=== PATIENT | female | born 1995 | race Caucasian/White ===

== ENCOUNTER → 2016-06-22 | Outpatient (CLI) | payer BC ==
[~2016-06-22] MED LIST: ALBUTEROL17 GM INH; B-121000 MCG/1; BENTYL20 MG DOB; GILENYA0.5 MG PO; IMPLANON68 MG/IMPL SQ; NO MEDICATIONS
--- NOTE | ~2016-06-22 | MR17 ---
[facility] A Service of [facility] & [facility] RADIOLOGY TEXT RESULTS PATIENT: JAQUI SHARMA LOCATION: [facility] : [birth year] UNIT #: [id number] AGE: [address]: AMADA JERNIGAN MD SEX: F ORDER DR: [id number] [address] [address] [id number] O MR#: [id number] Acc #: [id number] NAME: JAQUI SHARMA : 1995 SEX: F STUDY DATE/TIME: 06/22/2016 10:16 UNIT: [facility] ROOM: STUDY DESCRIPTION: MR Brain WWo Contrast Attending Physician: Amada Jernigan M.D. Referring Physician: Amada Jernigan M.D. Ordering Physician: Amada Jernigan M.D. Primary Care Physician: Zoila Paul M.D. MRI CENTER REPORT This report is preliminary unless electronic signature is present. EXAM MRI of the brain with and without contrast dated 06/22/2016. COMPARISON MRI brain with and without contrast dated 04/08/2016. HISTORY Numbness in the left foot since Monday. Follow up MS. TECHNIQUE Multisequence multiplanar imaging of the brain was obtained with and without contrast. 20 mL of MultiHance was administered intravenously. FINDINGS There are multiple hyperintense T2 lesions scattered in the brain. There are interval new lesions, with the largest 1 measuring 0.7 x 0.9 cm in the right frontoparietal junctional cortex and underlying subcortical white matter with enhancement. There are 3 other enhancing lesions noted in the brain; 1 in the left frontal centrum semiovale, second in the left frontoparietal junctional periventricular white matter and the last in the right middle cerebellar peduncle. These lesions are new when compared to the previous study. Previously noted lesions including the 1 in the right side of the splenium of the corpus callosum are again seen. No acute stroke, hydrocephalus, hemorrhage, or midline shift. Thick slices through the sella with the pituitary gland, pineal region and the cervical spine are grossly unremarkable. Imaged orbits and the ocular structures and mastoids are unremarkable. Nasal septum is deviated to the right. There is minimal bilateral mastoid mucosal thickening. IMPRESSION [facility] A Service of [facility] & [facility] RADIOLOGY TEXT RESULTS PATIENT: JAQUI SHARMA LOCATION: [facility] : [birth year] UNIT #: [id number] AGE: [address]: AMADA JERNIGAN MD SEX: F ORDER DR: 1. Abnormal study. 2. Interval worsening with 4 enhancing lesions in the brain which are in keeping with acute multiple sclerosis plaques. They are new when compared to the previous study and they are noted in bifrontal parietal white matter and in the right middle cerebellar peduncle, as described above. 3. Multiple other chronic multiple sclerosis plaques are also seen. 4. No hydrocephalus, hemorrhage, mass effect or midline shift. Dictated by... Cody Box M.D. THIS IS AN ELECTRONICALLY VERIFIED REPORT Cody Box M.D. at 06/23/2016 3:19 PM CPR/kamaljit TD: 06/22/2016 18:51 JOB #: [id number] MRI CENTER REPORT Page 1 of 1
== END | disposition home or self-care (01) ==
LOC: SMRI 09:48
DX: G35 Multiple sclerosis (principal); G93.89 Other specified disorders of brain
CPT/HCPCS: 70553; A9581

== ENCOUNTER → 2016-08-04 | Outpatient (CLI) | payer BC, OTHER | END | disposition home or self-care (01) | LOC: CSSDAY 09:25 | DX: G35 Multiple sclerosis (principal); Z79.899 Other long term (current) drug therapy | CPT/HCPCS: 96365; J2930 ==

== ENCOUNTER → 2016-08-05 | Outpatient (CLI) | payer BC, OTHER | END | disposition home or self-care (01) | LOC: CSSDAY 07:35 | DX: G35 Multiple sclerosis (principal); Z79.899 Other long term (current) drug therapy | CPT/HCPCS: 96365; J2930 ==

== ENCOUNTER → 2016-08-06 | Outpatient (CLI) | payer BC, OTHER | END | disposition home or self-care (01) | LOC: CSSDAY 09:36 | DX: G35 Multiple sclerosis (principal); Z79.899 Other long term (current) drug therapy | CPT/HCPCS: 96365; J2930 ==

== ENCOUNTER → 2016-08-07 | Outpatient (CLI) | payer BC, OTHER | END | disposition home or self-care (01) | LOC: CSSDAY 07:08 | DX: G35 Multiple sclerosis (principal); Z79.899 Other long term (current) drug therapy | CPT/HCPCS: 96365; J2930 ==

== ENCOUNTER → 2016-08-08 | Outpatient (CLI) | payer BC, OTHER | END | disposition home or self-care (01) | LOC: CSSDAY 06:51 | DX: G35 Multiple sclerosis (principal); Z79.899 Other long term (current) drug therapy | CPT/HCPCS: 96365; J2930 ==

== ENCOUNTER → 2016-08-24 | Outpatient (CLI) | payer BC, OTHER ==
--- NOTE | ~2016-08-24 | MR17 ---
[facility] A Service of [facility] & [facility] RADIOLOGY TEXT RESULTS PATIENT: JAQUI SHARMA LOCATION: [facility] : 93 UNIT #: [id number] AGE: [address]: AMADA JERNIGAN MD SEX: F ORDER DR: [id number] [address] [address] [id number] O MR#: [id number] Acc #: [id number] NAME: JAQUI SHARMA : 1995 SEX: F STUDY DATE/TIME: 08/24/2016 9:24 UNIT: [facility] ROOM: STUDY DESCRIPTION: MR Brain WWo Contrast Attending Physician: Amada Jernigan M.D. Referring Physician: Amada Jernigan M.D. Ordering Physician: Amada Jernigan M.D. Primary Care Physician: Zoila Paul M.D. MRI CENTER REPORT This report is preliminary unless electronic signature is present. EXAM MRI of the brain with and without contrast dated 08/24/2016 COMPARISON MRI brain with and without contrast dated 06/22/2016. HISTORY Follow up known multiple sclerosis. Left-sided facial numbness for 2 months. Patient was diagnosed with MS in December 2015. Patient has had change of treatment medications since last MRI. FINDINGS Multisequence, multiplanar imaging of the brain was obtained with and without contrast. No acute stroke, enhancing mass, hydrocephalus or midline shift. Redemonstrated are multiple hyperintense T2 nonenhancing lesions in the periventricular and subcortical white matter. They are about 10-12 in number ranging in size from a millimeter to 8.5 mm. The relatively largest 1 is in the right side of the splenium of the corpus callosum. Previously noted lesion in the right middle cerebellar peduncle close to the right cerebral hemisphere is again seen. No significant interval new lesions are seen given the differences in slice selection. The previously enhancing lesions have improved in the interval. The edema associated with the plaque in the right frontoparietal junctional subcortical white matter has also improved. Paranasal sinuses, orbits with the ocular structures and mastoids are unremarkable. Nasal septum is deviated to the right. Thick slices through the sella with the pituitary gland, pineal region and upper cervical spine are within normal limits. IMPRESSION 1. There is overall significant improvement in the enhancing and STS[facility] A Service of [facility] & [facility] RADIOLOGY TEXT RESULTS PATIENT: JAQUI SHARMA LOCATION: [facility] : [birth year] UNIT #: [id number] AGE: [address]: AMADA JERNIGAN MD SEX: F ORDER DR: edematous characteristics of some of the lesions. The size and number of the lesions itself appear to be predominantly stable involving the other lesions. 2. The currently noted nonenhancing T2 lesions are in keeping with chronic multiple sclerosis plaques. Dictated by... Cody Box M.D. THIS IS AN ELECTRONICALLY VERIFIED REPORT Cody Box M.D. at 08/25/2016 3:38 PM CPR/rishi TD: 08/25/2016 10:54 JOB #: [id number] MRI CENTER REPORT Page 1 of 1
== END | disposition home or self-care (01) ==
LOC: SMRI 08:59
DX: G35 Multiple sclerosis (principal); G93.89 Other specified disorders of brain
CPT/HCPCS: 70553; A9581

== ENCOUNTER → 2016-09-26 | Outpatient (CLI) | payer BC, OTHER ==
[2016-09-26 12:23] LABS: BASOPHIL% 0.9 % (0-2.5); EOSINOPHIL% 0.6 % (0.0-7.0); HEMATOCRIT 41.5 % (35.0-45.0); HEMOGLOBIN 14.1 gm/dL (12.0-16.0); LYMPHOCYTE# 0.3 X10e3 (1.0-3.5); LYMPHOCYTE% 6.9 % (17.0-45.0); MEAN CELL VOLUME 87.5 FL (83-96); MEAN CORPUSCULAR HEMOGLOBIN 29.8 PG (28-34); MEAN PLATELET VOLUME 9.7 FL (6.5-11.5); MONOCYTE# 0.4 X10e3 (0-1.0); MONOCYTE% 9.1 % (3.0-12.0); NEUTROPHIL# 3.7 X10e3 (1.5-7.1); NEUTROPHIL% 82.5 % (40-75); PLATELET COUNT 189 X10e3 (140-420); RED BLOOD COUNT 4.74 X10e (3.90-5.30); RED CELL DISTRIBUTION WIDTH 13.7 % (11.0-15.5); WHITE BLOOD COUNT 4.5 X10e3 (4.0-10.5)
[2016-09-26 12:27] LABS: DIFF IND NO
== END | disposition home or self-care (01) ==
LOC: CLAB 11:46
PROVIDERS: Psychiatry & Neurology Clinical Neurophysiology
DX: G35 Multiple sclerosis (principal)
CPT/HCPCS: 36415; 85025

== ENCOUNTER → 2016-11-07 | Outpatient (CLI) | payer BC, OTHER ==
--- NOTE | ~2016-11-07 | MR31 ---
[facility] A Service of [facility] RADIOLOGY TEXT RESULTS PATIENT: JAQUI SHARMA LOCATION: [facility] : [birth year] UNIT #: [id number] AGE: [address]: AZALIA PORTILLO MD SEX: F ORDER DR: [id number] [address] [address] [id number] O MR#: [id number] Acc #: [id number] NAME: JAQUI SHARMA : 1995 SEX: F STUDY DATE/TIME: 11/07/2016 16:12 UNIT: [facility] ROOM: STUDY DESCRIPTION: MR Cervical WWo Contrast Attending Physician: Azalia Portillo M.D. Referring Physician: Azalia Portillo M.D. Ordering Physician: Britt Ann Primary Care Physician: Zoila Paul M.D. MRI CENTER REPORT This report is preliminary unless electronic signature is present. EXAM Cervical MRI with without contrast HISTORY Multiple sclerosis with left sided heaviness, especially left lower extremity for the past 4 months. TECHNIQUE Multiplanar imaging cervical spine was performed with short and long TR with and without contrast. 20 mL of MultiHance was used. COMPARISON 12/07/2015 FINDINGS The cervical discs are unchanged. Increased T2 signal in the upper cervical cord dorsally at C1 and C2 noted on the previous examination is much less prominent on the current study. Signal in the remainder of the cervical cord is normal. After contrast administration no enhancing lesions are seen. IMPRESSION 1. Cord demyelination at C1 and C2 dorsally and more to the left than to the right is again noted but is much less prominent on the current study and there is no contrast enhancement. 2. No new cord lesions are seen elsewhere. Dictated by... Javier Alvarado M.D. THIS IS AN ELECTRONICALLY VERIFIED REPORT Javier Alvarado M.D. at 11/10/2016 4:01 PM [facility] A Service [facility] RADIOLOGY TEXT RESULTS PATIENT: JAQUI SHARMA LOCATION: [facility] #: [id number] : [birth year] UNIT #: [id number] AGE: [address]: AZALIA PORTILLO MD SEX: F ORDER DR: NICOLASA/quan TD: 11/08/2016 17:53 JOB #: [id number] MRI CENTER REPORT Page 1 of 1
--- NOTE | ~2016-11-07 | MR17 ---
[facility] A Service of [facility] & [facility] RADIOLOGY TEXT RESULTS PATIENT: JAQUI SHARMA LOCATION: [facility] : [birth year] UNIT #: [id number] AGE: [address]: AZALIA PORTILLO MD SEX: F ORDER DR: [id number] [address] [address] [id number] O MR#: [id number] Acc #: [id number] NAME: JAQUI SHARMA : 1995 SEX: F STUDY DATE/TIME: 11/07/2016 15:48 UNIT: [facility] ROOM: STUDY DESCRIPTION: MR Brain WWo Contrast Attending Physician: Azalia Portillo M.D. Referring Physician: Azalia Portillo M.D. Ordering Physician: Britt Ann Primary Care Physician: Zoila Paul M.D. MRI CENTER REPORT This report is preliminary unless electronic signature is present. EXAM Brain MRI with and without contrast HISTORY Multiple sclerosis with persistent left sided heaviness, especially to the left lower extremity over the past 4 months. TECHNIQUE Multiplanar imaging brain was performed with and without contrast. 20 mL of MultiHance was used. FINDINGS Multiple foci of bright FLAIR signal are seen around the ventricles. There is a new plaque seen adjacent to the atrium of the left lateral ventricle measuring approximately 1 x 1.5 cm in diameter. There is a subcortical plaque in the right frontal lobe that was present before but is slightly larger on the current examination. There is a small plaque posteriorly in the right middle cerebellar peduncle. It is slightly less prominent on the current study compared to the previous examination. The left parietal plaque adjacent to the atrium of the lateral ventricle enhances with contrast consistent with active demyelination. None of the other plaques enhance. Extraaxial structures are unremarkable. No mass lesions are identified. IMPRESSION 1. There is 1 new plaque in the left cerebral hemisphere adjacent to the atrium of the lateral ventricle that enhances with contrast when compared to the previous exam. 2. There is a right frontal plaque that is slightly larger but does not enhance. 3. Other plaques noted on previous examination are again seen and not significantly changed except for a small right cerebellar peduncle plaque that appears slightly smaller. [facility] A Service of [facility] & [facility] RADIOLOGY TEXT RESULTS PATIENT: JAQUI SHARMA LOCATION: [facility] : [birth year] UNIT #: [id number] AGE: [address]: AZALIA PORTILLO MD SEX: F ORDER DR: Dictated by... Javier Alvarado M.D. THIS IS AN ELECTRONICALLY VERIFIED REPORT Javier Alvarado M.D. at 11/10/2016 4:01 PM RLF/to TD: 11/08/2016 17:51 JOB #: [id number] MRI CENTER REPORT Page 1 of 1
--- NOTE | ~2016-11-07 | MR175 ---
[facility] A Service of [facility] & [facility] RADIOLOGY TEXT RESULTS PATIENT: JAQUI SHARMA LOCATION: [facility] : [birth year] UNIT #: [id number] AGE: [address]: AZALIA PORTILLO MD SEX: F ORDER DR: [id number] [address] [address] [id number] O MR#: [id number] Acc #: [id number] NAME: JAQUI SHARMA : 1995 SEX: F STUDY DATE/TIME: 11/07/2016 16:43 UNIT: [facility] ROOM: STUDY DESCRIPTION: MR Thoracic WWo Contrast Attending Physician: Azalia Portillo M.D. Referring Physician: Azalia Portillo M.D. Ordering Physician: Britt Ann Primary Care Physician: Zoila Paul M.D. MRI CENTER REPORT This report is preliminary unless electronic signature is present. EXAM Thoracic MRI with and without contrast HISTORY Multiple sclerosis. Left sided heaviness, especially the lower extremity for the past 4 months. TECHNIQUE Multiplanar imaging of the thoracic spine was performed with and without contrast. 20 mL of MultiHance was used. FINDINGS Alignment is satisfactory. Thoracic discs are unremarkable. The thoracic cord is normal in size and signal. No abnormal cord enhancement is seen. There is no evidence of marrow edema or paraspinous mass. IMPRESSION Negative thoracic MRI. Dictated by... Javier Alvarado M.D. THIS IS AN ELECTRONICALLY VERIFIED REPORT Javier Alvarado M.D. at 11/10/2016 4:01 PM RLF/to TD: 11/08/2016 17:55 JOB #: [id number] MRI CENTER REPORT Page 1 of 1
== END | disposition home or self-care (01) ==
LOC: SMRI 15:15
DX: G35 Multiple sclerosis (principal); I67.2 Cerebral atherosclerosis
CPT/HCPCS: 70553; 72156; 72157; A9581